=== PATIENT | female | born 1975 | race Caucasian/White ===

== ENCOUNTER 2017-12-28 07:37 | Outpatient (CLI) | payer MEDICARE ==
--- NOTE | 2017-12-28 10:21 | MRI ---
CERVICAL SPINE MRI WITHOUT CONTRAST: DATE: 12/28/17. COMPARISON: None. HISTORY: Bilateral arm pain and numbness, right greater than left, cervical spondylosis. TECHNIQUE: Multiplanar, multisequence MR imaging of the cervical spine provided without contrast. FINDINGS: The sagittal STIR imaging is unremarkable. No focal area of osseous marrow edema is seen. There is straightening of the normal cervical lordosis. There is no anterolisthesis or retrolisthesis noted w ithin the cervical spine. C2-3: No significant central canal or neural foraminal stenosis. C3-4: Bilateral facet hypertrophy. No significant central canal or neural foraminal stenosis. C4-5: Mild bilateral facet hypertrophy. No significant central canal or neural foraminal stenosis. C5-6: There is disk space narrowing, disk desiccation, and mild disk bulge with partial effacement o f the ventral thecal sac. There is bilateral facet hypertrophy with mild bilateral neural foraminal stenosis. C6-7: There is disk space narrowing, disk desiccation, and small right paracentral disk protrusion w ith partial effacement of the ventral thecal sac and mild central canal stenosis. There is facet hyp ertrophy bilaterally with no significant neural foraminal stenosis. C7-T1: No significant central canal or neural foraminal stenosis. There is no focal area of abnormal signal intensity identified within the cervical cord. Detailed assessment is limited secondary to motion artifact on many of the provided sequences. IMPRESSION: No evidence for severe central canal or neural foraminal stenosis. Detailed assessment is somewhat l imited on the basis of motion artifact. POS: JHOANA
== END 2017-12-28 07:38 | disposition home or self-care (01) ==
LOC: TBSIIMAG 07:37
PROVIDERS: ATTEND Neurological Surgery
DX: M47.12 Other spondylosis with myelopathy, cervical region (principal)
CPT/HCPCS: 72141